=== PATIENT | female | born 1990 | race Caucasian/White ===

== ENCOUNTER 2017-05-07 14:21 | Emergency (ER) | payer MEDICAID ==
[2017-05-07 16:59] LABS: ADD UMIC YES; UR ASCORBIC ACID NEGATIVE (NEGATIVE); UR BILIRUBIN (Dip) NEGATIVE (NEGATIVE); UR BLOOD (Dip) 3+ mg/dL (NEGATIVE); UR CLARITY SLIGHTLY CLOUDY (CLEAR); UR COLOR STRAW (YELLOW); UR GLUCOSE (Dip) NEGATIVE (NEGATIVE); UR KETONES (Dip) NEGATIVE (NEGATIVE); UR LEUKOCYTE ESTERASE (Dip) 1+ Leu/ul (NEGATIVE); UR NITRITE (Dip) NEGATIVE (NEGATIVE); UR RBC 32 /HPF (0-5); UR SPECIFIC GRAVITY (Dip) 1.006 (1.003-1.030); UR SQUAMOUS EPITHELIAL CELL MODERATE /HPF (FEW); UR TOTAL PROTEIN (Dip) NEGATIVE (NEGATIVE); UR UROBILINOGEN (Dip) NEGATIVE (NEGATIVE); UR WBC 23 /HPF (0-5)
== END 2017-05-07 18:09 | disposition home or self-care (01) ==
LOC: FTE 14:21
DX: O23.41 Unspecified infection of urinary tract in pregnancy, first trimester (principal); R10.2 Pelvic and perineal pain; Z3A.19 19 weeks gestation of pregnancy
CPT/HCPCS: 76805; 81001; 99284-25

== ENCOUNTER 2017-09-23 07:14 | Inpatient (IN) | payer MEDICAID ==
[2017-09-23] MEDS: AMPICILLIN 2 GM/NS (PMX) 100 ML IV (08:23)
[2017-09-23] MEDS ORDERED: IBUPROFEN 600 MG TAB PO (08:30)
[2017-09-23] MEDS ORDERED: BUTORPHANOL 2 MG INJ IV (08:30)
[2017-09-23] MEDS ORDERED: MISOPROSTOL 200 MCG TAB PR ×2 (08:30→17:30)
[2017-09-23] MEDS ORDERED: CARBOPROST 250 MCG INJ IM ×2 (08:30→17:30)
[2017-09-23] MEDS ORDERED: METHYLERGONOVINE 0.2 MG INJ IM ×2 (08:30→17:30)
[2017-09-23] MEDS ORDERED: BUTORPHANOL 1 MG INJ IV (08:30)
[2017-09-23] MEDS ORDERED: OXYTOCIN 30 UNITS/LR 500 ML IV ×2 (08:30→17:30)
[2017-09-23] MEDS: LACTATED RINGER'S 1,000 ML IV (08:44)
[2017-09-23 08:58] LABS: ADD MAN DIFF? NO
[2017-09-23 09:01] LABS: BASOPHILS % 0.3 % (0.0-2.0); EOSINOPHILS % 0.4 % (0.0-7.0); HEMATOCRIT 41.4 % (37.0-47.0); HEMOGLOBIN 13.3 g/dl (12.0-16.0); LYMPHOCYTES # 1.7 10^3/ul (0.8-2.9); LYMPHOCYTES % 17.9 % (15.0-51.0); MEAN CORPUSCULAR HGB CONC 32.1 g/dl (32.0-37.0); MEAN CORPUSCULAR VOLUME 87.2 fl (82.0-101.0); MEAN PLATELET VOLUME 11.1 fl (7.4-10.4); MONOCYTE # 0.7 10^3/ul (0.3-0.9); MONOCYTES % 7.7 % (0.0-11.0); NEUTROPHIL # 6.7 10^3/ul (1.6-7.5); NEUTROPHILS % 72.6 % (39.0-77.0); PLATELET COUNT 226 10^3/UL (140-415); RED BLOOD COUNT 4.75 10^6/ul (4.20-5.40); RED CELL DISTRIBUTION WIDTH 13.4 % (11.5-14.5)
[2017-09-23 09:01] LABS: WHITE BLOOD COUNT 9.3 10^3/ul (4.8-10.8)
[2017-09-23 09:35] LABS: INR 0.96; PROTIME 12.9 Sec (11.9-14.9)
[2017-09-23 09:36] LABS: PARTIAL THROMBOPLASTIN TIME 28.1 Sec (25.0-35.0)
[2017-09-23 09:50] LABS: HEPATITIS B SURFACE ANTIGEN NEGATIVE (NEGATIVE)
[2017-09-23] MEDS: OXYTOCIN 30 UNITS/LR 500 ML IV ×4 (11:21→17:31)
[2017-09-23] MEDS: AMPICILLIN 1 GM/NS (PMX) 50 ML IV ×2 (12:21→16:27)
[2017-09-23 15:24] LABS: RAPID PLASMA REAGIN NONREACTIVE (NR)
[2017-09-23] MEDS: LIDOCAINE 1% (MPF) 30 ML INJ INJ (17:07)
[2017-09-23] MEDS ORDERED: BENZOCAINE 20% 56 ML SPRAY TOP (17:30)
[2017-09-23] MEDS ORDERED: WITCH HAZEL/GLYCERIN PAD PR (17:30)
[2017-09-23] MEDS ORDERED: ONDANSETRON 4 MG INJ IV (17:30)
[2017-09-23] MEDS ORDERED: NACL 0.9% 3 ML SYG IV (17:30)
[2017-09-23] MEDS ORDERED: LANOLIN 7 GM TUBE TOP (17:30)
[2017-09-23] MEDS ORDERED: OXYCODONE/ASPIRIN (4.88/325) TAB PO (17:30)
[2017-09-23] MEDS: SENNA/DOCUSATE NA (8.6MG/50MG) TAB PO (22:05)
[2017-09-23] MEDS: ACETAMINOPHEN 325 MG TAB PO (22:06)
[2017-09-24] MEDS: OXYCODONE/ASPIRIN (4.88/325) TAB PO ×2 (04:42→21:17)
[2017-09-24] MEDS: SENNA/DOCUSATE NA (8.6MG/50MG) TAB PO ×2 (09:14→21:17)
[2017-09-24 11:11] LABS: ADD MAN DIFF? NO
[2017-09-24 11:12] LABS: BASOPHILS % 0.3 % (0.0-2.0); EOSINOPHILS % 0.3 % (0.0-7.0); HEMATOCRIT 38.4 % (37.0-47.0); HEMOGLOBIN 12.5 g/dl (12.0-16.0); LYMPHOCYTES % 15.9 % (15.0-51.0); MEAN CORPUSCULAR HEMOGLOBIN 28.1 pg (29.0-33.0); MEAN CORPUSCULAR HGB CONC 32.6 g/dl (32.0-37.0); MEAN CORPUSCULAR VOLUME 86.3 fl (82.0-101.0); MEAN PLATELET VOLUME 10.6 fl (7.4-10.4); MONOCYTE # 0.9 10^3/ul (0.3-0.9); MONOCYTES % 7.2 % (0.0-11.0); NEUTROPHIL # 9.3 10^3/ul (1.6-7.5); NEUTROPHILS % 75.7 % (39.0-77.0); PLATELET COUNT 216 10^3/UL (140-415); RED BLOOD COUNT 4.45 10^6/ul (4.20-5.40); RED CELL DISTRIBUTION WIDTH 13.6 % (11.5-14.5)
[2017-09-24 11:12] LABS: WHITE BLOOD COUNT 12.3 10^3/ul (4.8-10.8)
[2017-09-25] MEDS: OXYCODONE/ASPIRIN (4.88/325) TAB PO (04:40)
[2017-09-25] MEDS: SENNA/DOCUSATE NA (8.6MG/50MG) TAB PO (09:17)
== END 2017-09-25 14:05 | disposition home or self-care (01) | DRG 775 ==
LOC: L-D 07:14 → PP1 20:08
PROVIDERS: Obstetrics & Gynecology
PROC: 10E0XZZ Delivery of Products of Conception, External Approach (ICD-10-PCS; principal; 2017-09-23)
PROC: 0HQ9XZZ Repair Perineum Skin, External Approach (ICD-10-PCS; 2017-09-23)
PROC: 3E033VJ Introduction of Other Hormone into Peripheral Vein, Percutaneous Approach (ICD-10-PCS; 2017-09-23)
DX: O70.0 First degree perineal laceration during delivery (principal); Z3A.38 38 weeks gestation of pregnancy; Z37.0 Single live birth
CPT/HCPCS: 76815; 85025; 85610; 85730; 86592; 86850; 86900; 86901; 87340